=== PATIENT | male | born 1965 | race Caucasian/White ===

== ENCOUNTER 2024-12-22 17:35 | Emergency (ER) | payer BC, SELFPAY ==
[2024-12-22 17:40] VITALS: BP 144/90; PULSE 83; RESP 18; TEMP 37; O2SAT 96; BMI 34.0
--- NOTE | 2024-12-22 17:48 | PC.NURSE ---
pt states he slipped and fell backwards 2h [employer] while feeding his pigs. pt presents with a lac to the base of his R thumb on the hernandez side. pt reports his pain is 3/10. no bleeding at this time. pts last tetnus vac was 6mo ago. no needs voiced. call arita in reach.
--- NOTE | 2024-12-22 17:56 | ED_ITS ---
<Statement entered by Celeste Padgett MD - 12/22/24 22:51> I was consulted by the NICK, and we discussed the complexity of the problems being addressed. I approved the treatment and management plan for this patient's care in the emergency department, thus performing a substantive portion of the medical decision making. Celeste Padgett MD, FLORENTINO, FACEP Discharge Plan Disposition Patient Disposition: Home, Self-Care Condition: Good Prescriptions Prescriptions: New cephalexin 500 mg capsule 500 mg PO BID 7 Days Qty: 14 0RF Activity Restrictions/Add. Instructions Additional Instructions/Restrictions: As we discussed please wash with soap and water pat dry. Keep your stitches covered with a dry nonocclusive dressing. Stitches need to stay in for about 10 days. If you have any increasing redness pain swelling or drainage return to the emergency department. Send in a prescription to your pharmacy. Please take full there are problem. Clinical Impressions Clinical Impression: Laceration Instructions Patient Instructions: DI for Laceration Repair Print Language Print Language: Kosovan Discharge ED Provider: Celeste Padgett General Adult HPI General Chief complaint: Wound/Laceration Stated complaint: AO 12/22/24 1500 laceration right thumb Time Seen by Provider: 12/22/24 17:56 Mode of Arrival: Ambulatory Source of Information: Patient Description of Symptoms (Recalled from ER Triage Doc. by RN): Pt states he tripped while feeding his pigs and cut his right thumb on the bucket. t-dap is up to date History of Present Illness HPI narrative: Patient presents for evaluation of her right hand laceration. Patient states he was feeding his pig tripped and fell but was able to catch himself with his right hand on the feed bucket. However the feet bucket cut his left hand. He suffered approximately 3 cm laceration to the thenar eminence of his right hand. He denies any numbness tingling loss of motor or sensory. Related Data Previous Rx's ?Medication ?Instructions ?Recorded cephalexin 500 mg capsule 500 mg PO BID 7 days #14 caps 12/22/24 Allergies Allergy/AdvReac Type Severity Reaction Status Date / Time No Known Allergies Allergy Verified 12/22/24 17:52 [facility] Disclaimer: The information contained in this section may have been updated after the dong nt was seen, as this information can be updated by other users. Social History Smoking Status: Light tobacco smoker alcohol intake: never current occupational status: employed Travel in the last 8 weeks: None ROS Obtained: Yes Systems reviewed as appropriate & no additional complaints except as documented Physical Exam General General appearance: alert and in no apparent distress Respiratory Respiratory exam: Present normal lung sounds bilaterally Cardiovascular Cardiovascular exam: Present regular rate Neurological Exam Neurological exam: Present alert and oriented X3 Medical Decision Making Medical Records Medical records reviewed: Yes I reviewed the patient's medical records. Screening: Per USPSTF and CDC recommendations, given the prevalence of disease in our region, it is our hospital?s policy to screen for HIV and viral Hepatitis for all patients aged 18 and over and those with ongoing risk factors. Diogo Inquiry Pt receiving controlled substance: No Vital Signs: 12/22/24 17:40 12/22/24 18:51 Temperature 98.6 F 98.0 F Temperature Source Oral Pulse Rate 81 Pulse Rate [Right] 83 Respiratory Rate 18 16 Blood Pressure 134/87 Blood Pressure [Right Arm] 144/90 H Blood Pressure Mean [Right Arm] 108 02 Sat by Pulse Oximetry 96 Oxygen Delivery Method Room Air Orders (Tests/Meds): ED MEDICATIONS Discontinued Medications Generic Name Dose Route Start Last Admin Trade Name Freq PRN Reason Stop Dose Admin Cephalexin HCl 500 mg 12/22/24 18:13 12/22/24 18:22 Cephalexin 500mg Capsule PO 12/22/24 18:14 500 mg ONCE ONE Administration Lidocaine/Epinephrine 20 ml 12/22/24 18:12 12/22/24 18:21 Lidocaine 1% W/Epi 1:100,000 20ml Vial SQ 12/22/24 18:13 20 ml ONCE ONE Administration Medical Decision Narrative: In summary patient is a 59-year-old male who presents to the emergency department for evaluation of hand laceration. Patient is hemodynamically stable upon arrival, afebrile. Physical exam is remarkable for 3 cm laceration over the thenar eminence palm of his right hand. Is to be superficial and does not involve any deeper structures. Patient has full range of motion is neurovascular intact distally.. Differential diagnosis includes superficial versus complex deep laceration of the right hand. Initial workup will be conducted with exam under subcu anesthesia. Initial interventions include Keflex and patient's tetanus is up-to-date. Initial workup performed by me and after adequate anesthesia wound was irrigated with a liter of Hibiclens and saline. All deep structures are intact and only involves the skin and immediate subcutaneous tissue. Given this wound was repaired primarily with 6 point 0 nylon sutures in an interrupted fashion. Given this patient is appropriate for discharge with prescription for Keflex and sent to his pharmacy with instructions to leave the sutures in for approximately 10 days. He is given strict return precautions for redness drainage swelling increasing pain. Wound care instructions were given to myself he may wash with soap and water and keep sutures covered with a clean dry nonocclusive dressing. Procedures Laceration Laceration 1: Site: hand Side (If applicable): right Size (cm): 3 Description: linear Depth: involves subcutaneous layer Local Anesthetic: lidocaine 1% and with epi Amount of anesthesia used (mL): 10 Pre-repair: wound explored, irrigated extensively and deep structures intact Skin layer closed with: nylon Size (cm): 4-0 Number of sutures: 6 Technique: simple, interrupted Critical Care Critical Care Time Critical Care Time: No
--- OUTSIDE RECORDS SUMMARY | 2024-12-22 18:06 | XMS_ITS ---
Author Organization Unknown Medications Medication Instructions Effective Dates (start - stop) Status rosuvastatin calcium 20 MG O ral Tablet 2664-82-02Y87:00:00.000+00:0 0 - Completed rosuvastatin calcium 20 MG O ral Tablet 6402-11-71M40:00:00.000+00:0 0 - Completed rosuvastatin calcium 20 MG O ral Tablet 5109-01-69K37:00:00.000+00:0 0 - Completed rosuvastatin calcium 20 MG O ral Tablet 5698-11-98H47:00:00.000+00:0 0 - Completed rosuvastatin calcium 20 MG O ral Tablet 1414-57-46V17:00:00.000+00:0 0 - Completed rosuvastatin calcium 20 MG O ral Tablet 0812-15-32Y09:00:00.000+00:0 0 - Completed rosuvastatin calcium 20 MG O ral Tablet 2512-89-47G00:00:00.000+00:0 0 - Completed rosuvastatin calcium 20 MG O ral Tablet 9485-51-06G20:00:00.000+00:0 0 - Completed rosuvastatin calcium 20 MG O ral Tablet 8616-18-78W19:00:00.000+00:0 0 - Completed rosuvastatin calcium 20 MG O ral Tablet 8194-16-25H02:00:00.000+00:0 0 - Completed 24 HR bupropion hydrochlorid e 150 MG Extended Release Oral Tablet 0472-96-18K27:00:00.00 0+00:0 0 - Completed lisinopril 20 MG Oral Tablet 11-14-13:00:00.000+00:0 0 - Completed 24 HR bupropion hydrochlorid e 150 MG Extended Release Oral Tablet 1025-99-26D87:00:00.00 0+00:0 0 - Completed ergocalciferol 1.25 MG Oral Capsule 2176-78-49T75:00:00.000+00:0 0 - Completed lisinopril 20 MG Oral Tablet 11-09-12:00:00.000+00:0 0 - Completed 24 HR bupropion hydrochlorid e 150 MG Extended Release Oral Tablet 7230-89-88K80:00:00.00 0+00:0 0 - Completed lisinopril 20 MG Oral Tablet 11-13-14:00:00.000+00:0 0 - Completed rosuvastatin calcium 20 MG O ral Tablet 8059-44-19O48:00:00.000+00:0 0 - Completed lisinopril 20 MG Oral Tablet 10-22-13:00:00.000+00:0 0 - Completed lisinopril 20 MG Oral Tablet 10-21-08:00:00.000+00:0 0 - Completed 24 HR bupropion hydrochlorid e 150 MG Extended Release Oral Tablet 8260-28-37C07:00:00.00 0+00:0 0 - Completed rosuvastatin calcium 20 MG O ral Tablet 6386-04-66A04:00:00.000+00:0 0 - Completed 24 HR bupropion hydrochlorid e 150 MG Extended Release Oral Tablet 0973-91-05R46:00:00.00 0+00:0 0 - Completed 24 HR bupropion hydrochlorid e 150 MG Extended Release Oral Tablet 7507-23-08G31:00:00.00 0+00:0 0 - Completed lisinopril 20 MG Oral Tablet 10-20-02:00:00.000+00:0 0 - Completed 24 HR bupropion hydrochlorid e 150 MG Extended Release Oral Tablet 5496-83-37T45:00:00.00 0+00:0 0 - Completed 24 HR bupropion hydrochlorid e 150 MG Extended Release Oral Tablet [id number]:00:00.00 0+00:0 0 - Completed ergocalciferol 1.25 MG Oral Capsule 6875-75-37T57:00:00.000+00:0 0 - Completed lisinopril 20 MG Oral Tablet 11-11-13:00:00.000+00:0 0 - Completed lisinopril 20 MG Oral Tablet 10-18-10:00:00.000+00:0 0 - Completed lisinopril 20 MG Oral Tablet 202 11-10-16:00:00.000+00:0 0 - Completed 24 HR bupropion hydrochlorid e 150 MG Extended Release Oral Tablet 1166-27-13X59:00:00.00 0+00:0 0 - Completed 24 HR bupropion hydrochlorid e 150 MG Extended Release Oral Tablet 0557-27-22H28:00:00.00 0+00:0 0 - Completed 24 HR bupropion hydrochlorid e 150 MG Extended Release Oral Tablet 8703-68-12H17:00:00.00 0+00:0 0 - Completed 24 HR bupropion hydrochlorid e 150 MG Extended Release Oral Tablet 8903-53-66K42:00:00.00 0+00:0 0 - Completed lisinopril 20 MG Oral Tablet 202 11-09-11:00:00.000+00:0 0 - Completed lisinopril 20 MG Oral Tablet 202 11-13-15:00:00.000+00:0 0 - Completed lisinopril 20 MG Oral Tablet 10-19-08:00:00.000+00:0 0 - Completed ergocalciferol 1.25 MG Oral Capsule 6425-97-34Z33:00:00.000+00:0 0 - Completed ergocalciferol 1.25 MG Oral Capsule 9263-60-39R96:00:00.000+00:0 0 - Completed ergocalciferol 1.25 MG Oral Capsule 7506-84-08V66:00:00.000+00:0 0 - Completed ergocalciferol 1.25 MG Oral Capsule 3169-31-04H37:00:00.000+00:0 0 - Completed ergocalciferol 1.25 MG Oral Capsule 5022-12-11E10:00:00.000+00:0 0 - Completed ergocalciferol 1.25 MG Oral Capsule 7952-87-91J02:00:00.000+00:0 0 - Completed ergocalciferol 1.25 MG Oral Capsule 9310-12-11V69:00:00.000+00:0 0 - Completed ergocalciferol 1.25 MG Oral Capsule 1813-34-33W86:00:00.000+00:0 0 - Completed ergocalciferol 1.25 MG Oral Capsule 5605-30-72G74:00:00.000+00:0 0 - Completed ergocalciferol 1.25 MG Oral Capsule 5145-09-34Q87:00:00.000+00:0 0 - Completed Patient Care team information Name Category Status Period Participants - - Proposed period not known -
--- OUTSIDE RECORDS SUMMARY | 2024-12-22 18:06 | XMS_ITS | Continuity of Care Document ---
Author Organization [facility] & [place], [facility] Address [address] [place] [address] [address] [place] [address] Care Team Providers Care Bufferer Name Role Phone PRIMARY PLUS - SATISH Primary Care Provider [phone] Assessment No assessment recorded. Plan of Treatment Reminders Order Date Submit Date Provider Last Modified By Organization Details Last Modified Time Details Appointments None record ed. Lab None record ed. Referral None record ed. Procedures None record ed. Surgeries None record ed. Imaging None record ed. Medication Orders None record ed. Patient TargetsNo targets recorded. Patient Instructions Encounter Date Encounter Id Patient Instructions Last Modified By Organization Details Last Modified Time 11/14/2024 [id number] Continue CPAP each and every night full sleep cycle , he voiced understanding. He is on auto CPAP in range of 6-20 cm and he is compliant, he benefits from CPAP with resolution of fatigue, witnessed apneas and snores. He states he will discuss with his primary care provider referral for another sleep physician /provider. [email or web address] Not available 11/14/2024 09:01:55 Reason for Referral None Reported. Problems Name Problem SNOMED Code Status Onset Date Resolution Date Notes Provider Name and Address Organization Details Recorded Time Obstructive sleep apnea syndrome 68542065 Active 023 Syed Melo MD [address] [facility] [address], [place], [address] [place] [address] & [place] 3 20:19:14 Problem Notes None recorded. Medical Equipment None Reported. Allergies No known drug allergies Medications Name Sig Start Date Stop Date Status Note LastModified by Organization Details LastModified Time doxycycline hyclate 100 mg capsule 11/14 completed Not Available Not Available Not Available clindamycin HCl 300 mg capsule TAKE 1 CAPSULE BY MOUTH THREE TIMES A DAY FOR 7 DAYS 11/14 completed Not Available Not Available Not Available sildenafil 50 mg tablet as directed active Not Available Not Available No t Available ibuprofen 800 mg tablet as needed 10/16 completed Not Available Not Available Not Available lisinopril 20 mg tablet Take 1 tablet every day by oral route for 30 days. active Not Available Not Available No t Available acetaminoph en 300 mg-codeine 30 mg tablet 11/14 completed Not Available Not Available Not Available meloxicam 7.5 mg tablet Take 1 tablet every day by oral route for 30 days. 10/16 completed Not Available Not Available Not Available mupirocin 2 % topical ointment APPLY A SMALL AMOUNT TO AFFECTED AREA 3 TIMES A DAY active Not Available Not Available No t Available testosteron e cypionate 200 mg/mL intramuscul ar oil as directed 11/06 completed Not Available Not Available Not Available methylpredn isolone 4 mg tablets in a dose pack 11/14 completed Not Available Not Available Not Available Vitamin D2 1,250 mcg (50,000 unit) capsule Take 1 capsule every week by oral route for 28 days. active Not Available Not Available No t Available celecoxib 100 mg capsule 10/19 completed Not Available Not Available Not Available rosuvastati n 20 mg tablet Take 1 tablet every day by oral route for 30 days. active Not Available Not Available No t Available bupropion HCl XL 150 mg 24 hr tablet, extended release Take 1 tablet every day by oral route for 30 days. active Not Available Not Available No t Available chlorhexidi ne gluconate 0.12 % mouthwash as directed 10/16 completed Not Available Not Available Not Available sodium,pota ssium,mag sulfates 17.5 gram-3.13 gram-1.6 gram oral soln active Not Available Not Available Not Available Vitals Date Recorded Body height Body mass index (BMI) Body weight Oxygen saturation Oxygen saturation in Arterial blood by Pulse oximetry Respiratory rate Systolic blood pressure Diastolic blood pressure Provider Name and Address Organization Details Last Updated DateTime 182.88 cm 35.4 kg/m2 419622. 61 g 97 % 97 % 14 /min 132 mm[Hg] 82 mm[Hg] Crystal [place]wine [place] - [facility] - [place] & [place] 08:54:19 Date Recorded Heart rate Provider Name an d Address Organization Details Last Updated DateTime 11/14/2024 67 /min Syed munson MD [address] [place] [address],[address], [place], [address], [facility] & [place] 11/14/2024 08:59:46 Social History Question Answer Notes LastModified by Organizat ion Details LastModified Time Tobacco Smoking Status Former Smoker 1 PPD hx 35 years Jeanne gonzalez, [facility] & [place] 10/04/2022 15:17:22 Do You Have An Advance Directive? No Information not available 10/04/2022 What Is Your Level Of Alcohol Consumption? Occasional Information not available 10/04/2022 Are You Blind Or Do You Have Difficulty Seeing? No Information not available 10/04/2022 When Did You Quit Smoking? 1-5yearssinkeena sarah QUIT 2019 Information not available 10/19/2023 What Was The Date Of Your Most Recent Tobacco Screening? 11/11/2024 Information not available 11/14/2024 What Is Your Current Pack Years? [email or web address] Information not available 10/19/2023 Are You Passively Exposed To Smoke? No Information not available 10/04/2022 Do You Or Have You Ever Used Smokeless Tobacco? Former Smokeless Tobacco User Information not available 10/04/2022 How Much Tobacco Do You Smoke? No Information not available 10/04/2022 Do You Feel Stressed (tense, Restless, Nervous, Or Anxious, Or Unable To Sleep At Night)? [id number] Information not available 10/04/2022 Do You Use Any Illicit Or Recreational Drugs? Yes Information not available 11/14/2024 How Many Years Have You Smoked Tobacco? 35 Information not available 11/14/2024 Sex: Male Functional Status Question Answer Note LastModified by Organizat ion Details LastModified Time What is your exercise level? Occasional Information not available 10/04/2022 Mental Status None recorded. Family History Relationship Description Onset Age of this Age Resolved Age Notes LastModified by Organization Details LastModified Time Father No current problems or disability [email or web address] Not available 11/14 08:48:08 Mother No current problems or disability [email or web address] Not available 11/14 08:48:08 Mother Multiple sclerosis 53 70 Not available 05/2024 09:28:49 Maternal Grandfather Myocardial infarction 56 56 Not available 05/2024 09:28:49 Medical History Condition Response None N Eczema Y High Cholesterol Y Hypertension Y Past Encounters Encounter ID Performer Location Encounter Start Date Encounter Closed Date Diagnosis/Indication Diagnosis SNOMED-CT Code Diagnosis ICD10 Code Diagnosis Note [id number] MD [facility] [address] [facility] [address] [place] [id number] 11/14/2024 08:44:50 11/14/2024 08:59:24 Obstructive sleep apnea syndrome 68273182 G47.33 Health Concerns Section Related Observation LastModified by Organization Detai ls LastModified Time None Recorded Concern Status LastModified by Organization Details LastModified Time None Recorded Payers Encounter Date Sequence Insurance Name Policy Number Policy Spence Covered Member ID Spence Member ID Guarantor Name 11/14/2024 1 [place] [id number] Ron Zambrano [id number] Ron Zambrano Notes Date Note Type Note Provider Name and Address Organization Details Recorded Time 11/14/2024 text/html 59-year-old male here for follow-up. He has history of obstructive sleep apnea.He denies RLS, fatigue, hypersomnia, shortness of breath, sleep attacks, sleep paralysis, dyspnea, hemoptysis, pleurisy, chest pain, chest pressure, cough or productive sputum.Home sleep study revealed an apnea plus hypopnea index of 55, patient spent 43 minutes less than 90% saturation, lowest saturation recorded was 81%.He is on auto CPAP range of 6-20 cm. Sagle of 0. AHI is 2.8 with auto CPAP range 6-20cm. He is markedly improved with CPAP with resolution of fatigue, witnessed apneas and snores. He declines a low-dose CT scan of chest and CXR. I explained to patient again a low-dose CT scan chest/CXR may detect an early lung cancer and or other lung disorders and result in improved survival and may prevent him from future ill health, sickness and , he voiced understanding and declines a low-dose CT scan of chest and/or a CXR. Patient was instructed to wear CPAP each and every night full sleep cycle, he voiced understanding and stated he would. He voices no sleep-related or CPAP related issues. He wakes up rested and refreshed. No fatigue, EDS or hypersomnia.He denies fatigue, hypersomnia, sleep attacks, sleep hallucinations, sleep paralysis, cataplexy or RLS.He voices no cardiopulmonary complaints, no GI complaints, no neurologic complaints today.He denies fever, chills, night sweats, hemoptysis, pleurisy, dyspnea, chest pain, chest pressure, orthopnea, PND, syncope, palpitations, cough, productive sputum or dizziness.The patient does not get sleepy, drowsy or fall asleep while driving, patient warned no driving motorized vehicles or operating machinery while fatigued, sleepy or drowsy, he voiced understanding.Jurgen herrera Wells criteria of 0. Sagle of 0.This note was completed using a dictation system. We do our best to minimize mistakes by this dictation system, but some dictation system mistakes cannot be identified. If something does not make sense and/ or appears in error please do not hesitate to contact our office. We can correct the record and/ or clarify for you.The patient was warned no driving motorized vehicles or operating heavy machinery while fatigued, sleepy or drowsy, the patient voiced understanding and he stated he would not.Patient was instructed to read the side effect package profile very carefully on all medications prescribed, and to stop medications immediately and go to ER if the patient has any problems, he voiced understanding. Patient was instructed to go over side effects /adverse effects / drug interactions with all of the prescribed and [id number] medications with a pharmacist, he again voiced understanding. The patient was instructed to go to ER if the patient does not continue to improve or worsens, he again voiced understanding.I told the patient I will be retiring January 2025, the patient voiced understanding.The patient was instructed to follow-up with their primary care provider and/or a printing table hand/sleep physician for all their future pulmonary needs/ issues/meds and all of their sleep needs/issues/meds, the patient voiced understanding. The patient was also instructed to follow-up with their primary care provider and/ or a printing table hand for all recommended future CT scans of the chest, the patient voiced understanding. I told the patient their lack of follow-up with recommended future CT scans of chest could result in future ill health, sickness, , the patient again voiced understanding.He voiced understanding of all the above. Syed Melo MD [address] [facility],[address], [place], [address], [facility] - [place] - [place] & [place] 11/14/2024 09:03:48
--- OUTSIDE RECORDS SUMMARY | 2024-12-22 18:06 | XMS_ITS | Data Portability ---
Author Organization [place] [facility] Address [address] [place] [address] Care Team Providers Care Revenue Inspector Name Role Phone PRIMARY PLUS - SATISH Primary Care Provider Assessment No assessment recorded. Plan of Treatment [...] Modified By Organization Details Last Modified Time 10/04/2022 [id number] continue CPAP each and every night full sleep cycle. He is on auto CPAP in range of 6-20 cm, he is compliant and benefits from CPAP with resolution of fatigue, witnessed apneas and snores, apnea plus hypopnea index of 7.5. Continued tobacco cessation. Again he declines a low-dose CT scan of chest, see previous note. Weight loss. This note was completed using a dictation system. We do our best to minimize mistakes by this dictation system, but some dictation system mistakes cannot be identified. If something does not make sense and/ or appears in error please do not hesitate to contact our office. We can correct the record and/or clarify for you. The patient was warned no driving motorized vehicles or operating heavy machinery while fatigued, sleepy or drowsy, the patient voiced understanding and the patient stated they would not. Patient was instructed to read the side effect package profile very carefully on all medications prescribed, and to stop medications immediately and go to ER if the patient has any problems, the patient voiced understanding. Patient was instructed to go over side effects /adverse effects / drug interactions with all of the prescribed and over the counter medications with the pharmacist, the patient again voiced understanding. The patient was instructed to go to ER if the patient does not improve or worsens, the patient again voiced understanding. Return to clinic in 1 year. [email or web address] Not available 10/04/2022 14:52:17 10/19/2023 [id number] Continue CPAP each and every night full sleep cycle , he voiced understanding. He is on auto CPAP in range of 6-20 cm, he benefits from CPAP with resolution of fatigue, witnessed apneas and snores. Continued tobacco cessation. He states he has not been able wear CPAP consistently as of recently as he has been away from home. States he has been wearing CPAP each and every sleep cycle for the last week. Return to clinic in 3 - 4 weeks with compliance report. [email or web address] Not available 10/19/2023 09:44:58 11/09/2023 [id number] Continue CPAP each and every night full sleep cycle , he voiced understanding. He is on auto CPAP in range of 6-20 cm and he is compliant, he benefits from CPAP with resolution of fatigue, witnessed apneas and snores. Continued tobacco cessation. Return to clinic in 1 year Not available 11/09/2023 09:03:45 11/14/2024 [id number] Continue CPAP each and every night full sleep cycle , he voiced understanding. He is on auto CPAP in range of 6-20 cm and he is compliant, he benefits from CPAP with resolution of fatigue, witnessed apneas and snores. He states he will discuss with his primary care provider referral for another sleep physician /provider. [email or web address] Not available 11/14/2024 09:01:55 Reason for Referral None Reported. Problems Name Problem SNOMED Code Status Onset Date Resolution Date Notes Provider Name and Address Organization Details Recorded Time Obstructive sleep apnea syndrome 25826288 Active 023 Syed Melo MD [address] [place] [address],[address], [address] [place] [address] & [place] 3 20:19:14 Problem Notes None recorded. Medical [...] Not Available Not Available Vitals Date Recorded Oxygen saturation Oxygen saturation in Arterial blood by Pulse oximetry Respiratory rate Heart rate Provider Name and Address Organization Details Last Updated DateTime 10/04/2022 97 % 97 % 12 /min 71 /min Syed Melo MD [address] [place] [address],[facility] [address], [address], [place] - [facility] - [facility] & F[place] 3 14:55:35 Date Recorded Body height Body mass index (BMI) Body weight Systolic blood pressure Diastolic blood pressure Provider Name and Address Organization Details Last Updated DateTime 10/04/2022 182.88 cm 36.3 kg/m2 402212.7 6 g 122 mm[Hg] 80 mm[Hg] Crystal Anushka [place] - [facility] - [place] & [place] 3 15:14:22 Date Recorded Body height Body mass index (BMI) Body weight Oxygen saturation Oxygen saturation in Arterial blood by Pulse oximetry Systolic blood pressure Diastolic blood pressure Provider Name and Address Organization Details Last Updated DateTime 4 182.88 cm 34.7 kg/m2 000739. 21 g 99 % 99 % 112 mm[Hg] 78 mm[Hg] Crystal Anushka [place] - [facility] - [place] & [place] 4 09:28:18 Date Recorded Heart rate Respiratory rate Provider N melanie and Address Organization Details Last Updated DateTime 10/19/2023 70 /min 14 /min Syed Melo MD [address] [place] [address],[address], [place], [address], [place] - [facility] - [place] & [place] 10/19/2023 09:36:42 Date Recorded Body height Body mass index (BMI) Body weight Oxygen saturation Oxygen saturation in Arterial blood by Pulse oximetry Heart rate Respiratory rate Systolic blood pressure Diastolic blood pressure Provider Name and Address Organization Details Last Updated DateTime 4 182.88 cm 35.3 kg/m2 533993. 02 g 99 % 99 % 66 /min 12 /min 132 mm[Hg] 80 mm[Hg] Crystal Anushka [place] - [facility] - [place] & [place] 4 08:58:18 Date Recorded Body height Body mass index (BMI) Body weight Oxygen saturation Oxygen saturation in Arterial blood by Pulse oximetry Respiratory rate Systolic blood pressure Diastolic blood pressure Provider Name and Address Organization Details Last Updated DateTime 5 182.88 cm 35.4 kg/m2 682837. 61 g 97 % 97 % 14 /min 132 mm[Hg] 82 mm[Hg] Crystal Anushka [place] - [facility] - [place] & [place] 08:54:19 Date Recorded Heart rate Provider Name an d Address Organization Details Last Updated DateTime 11/14/2024 67 /min Syed munson MD [address] [place] [address],[address], [place], [address], [facility] & [place] 11/14/2024 08:59:46 Social History Question Answer Notes LastModified by Organizat ion Details LastModified Time Tobacco Smoking Status Former Smoker 1 PPD hx 35 years Crystal Earlywine [facility], JUDD [facility] & [place] 10/04/2022 15:17:22 Do You Have An Advance [...] 11/14/2024 What Is Your Current Pack Years? [email or web address] [email or web address] Information not available 10/19/2023 Are You Passively Exposed To Smoke? No Information not available 10/04/2022 Do You Or Have You Ever Used Smokeless Tobacco? Former Smokeless Tobacco User Information not available 10/04/2022 How Much Tobacco Do You Smoke? No Information not available 10/04/2022 Do You Feel Stressed (tense, Restless, Nervous, Or Anxious, Or Unable To Sleep At Night)? [id number] Information not available 10/04/2022 Do You Use [...] Time Father No current problems or disability [email or web address] Not available 11/14 08:48:08 Mother No current problems or disability [email or web address] Not available 11/14 08:48:08 Mother Multiple sclerosis 53 70 Not available 05/2024 09:28:49 Maternal Grandfather Myocardial infarction 56 56 Not available 05/2024 09:28:49 Medical History Condition Response None N Eczema Y Hypertension Y High Cholesterol Y Past Encounters Encounter ID Performer Location Encounter Start Date Encounter Closed Date Diagnosis/Indication Diagnosis SNOMED-CT Code Diagnosis ICD10 Code Diagnosis Note [id number] [facility] [address] [facility] [address] [place] [address] [place] [id number] 10/04/2022 14:18:19 10/04/2022 14:50:36 Obstructive sleep apnea syndrome 99329816 G47.33 [id number] MD [facility] [address] [facility] [address] [place] [address] [place], [place] [id number] 10/19/2023 09:20:40 10/19/2023 09:42:05 Obstructive sleep apnea syndrome 40348266 G47.33 [id number] MD T[facility] [address] [facility] [address] [place] [address] [place] [phone] 11/09/2023 08:50:56 11/09/2023 09:06:07 Obstructive sleep apnea syndrome 64525308 G47.33 [id number] MD T[facility] [address] [facility] [address] [place] [address] [place] [phone] 11/14/2024 08:44:50 11/14/2024 08:59:24 Obstructive sleep apnea syndrome 77885446 G47.33 Health Concerns Section Related Observation LastModified by Organization Detai ls LastModified Time None Recorded Concern Status LastModified by Organization Details LastModified Time None Recorded Advance Directives Directive N: Payers Encounter Date Sequence Insurance Name Policy Number Policy Spence Covered Member ID Spence Member ID Guarantor Name 10/04/2022 1 [place] [employer] [place] [id number] Ron Zambrano [id number] Ron Zambrano 10/19/2023 1 [place] [id number] Ron Zambrano [id number] Ron Zambrano 11/09/2023 1 [place] [id number] Ron Zambrano [id number] Ron Zambrano 11/14/2024 1 [place] [id number] Ron Zambrano [id number] Ron Zambrano Notes Date Note Type Note Provider Name and Address Organization Details Recorded Time 10/04/2022 text/html He is a 57-year- old male here for follow-up. He has history of obstructive sleep apnea. He denies RLS, fatigue, hypersomnia, sleep attacks, sleep paralysis, dyspnea, hemoptysis, pleurisy, chest pain, chest pressure, cough or productive sputum. Home sleep study revealed an apnea plus hypopnea index of 55, patient spent 43 minutes less than 90% saturation, lowest saturation recorded was 81%. He is on auto CPAP range of 6-20 cm. [place] of 1 today. He is markedly improved with CPAP with resolution of fatigue, witnessed apneas and snores. He again declines a low-dose CT scan of chest. I explained to patient again a low-dose CT scan chest may detect an early lung cancer and or other lung disorders and result in improved survival, he voiced understanding and still declines a low-dose CT scan of chest.He was unable to wear CPAP for the month of June as he did not have electricity where he was at otherwise he is compliant with CPAP. Syed Melo MD [address], [place], [address], [facility] & [place] 10/04/2022 15:49:13 10/19/2023 text/html 58-year-old male here for follow-up. He has history of obstructive sleep apnea.The patient denies RLS, fatigue, hypersomnia, sleep attacks, sleep paralysis, dyspnea, hemoptysis, pleurisy, chest pain, chest pressure, dyspnea, cough or productive sputum. Home sleep study revealed an apnea plus hypopnea index of 55, patient spent 43 minutes less than 90% saturation, lowest saturation recorded was 81%. He is on auto CPAP range of 6-20 cm. [place] of 2 today. He is markedly improved with CPAP with resolution of fatigue, witnessed apneas and snores. The patient again declines a low-dose CT scan of chest. I again explained to patient again a low-dose CT scan chest may detect an early lung cancer and or other lung disorders and result in improved survival, he voiced understanding and still declines a low-dose CT scan of chest.He states he did have an air leak at his resevoir site and this has been corrected he stated. Patient was instructed to wear CPAP each and every night full sleep cycle, he voiced understanding and stated he would.The patient presently voices no sleep-related or CPAP/BiPAP related issues. He is due for new supplies. States he has had CPAP machine approximately a year.The patient voices no cardiopulmonary complaints, no GI complaints, no neurologic complaints today.Patient denies fever, chills, night sweats, hemoptysis, pleurisy, chest pain, chest pressure, orthopnea, PND, syncope, palpitations, cough, productive sputum or dizziness.The patient does not get sleepy, drowsy or fall asleep while driving, patient warned no driving motorized vehicles or operating machinery while fatigued, sleepy or drowsy, he voiced understanding.Jurgen herrera Wells criteria of 0. [place] of 2.He denies fatigue, hypersomnia, sleep attacks, sleep hallucinations, sleep paralysis, cataplexy or RLS.This note was completed using a dictation system. [...] ER if the patient has any problems, the patient voiced understanding. Patient was instructed to go over side effects /adverse effects / drug interactions with all of the prescribed and [id number]-qmkrgam medications with a pharmacist, he again voiced understanding. The patient was instructed to go to ER if the patient does not improve or worsens, the patient again voiced understanding. Syed Melo MD [address] [place] [address],[address], [place], [address], [place] - [facility] - [place] & [place] 10/19/2023 13:25:34 11/09/2023 text/html 58-year-old male here for follow-up. He has history of obstructive sleep apnea.The patient denies RLS, fatigue, hypersomnia, sleep attacks, sleep paralysis, dyspnea, hemoptysis, pleurisy, chest pain, chest pressure, dyspnea, cough or productive sputum. Home sleep study revealed an apnea plus hypopnea index of 55, patient spent 43 minutes less than 90% saturation, lowest saturation recorded was 81%. He is on auto CPAP range of 6-20 cm. [place] of 2 today. AHI is 6.9 with auto CPAP range 6-20cm. He is markedly improved with CPAP with resolution of fatigue, witnessed apneas and snores. The patient declines a low-dose CT scan of chest and CXR. I again explained to patient again a low-dose CT scan chest/CXR may detect an early lung cancer and or other lung disorders and result in improved survival and may prevent him from future ill health, sickness and , he voiced understanding and still declines a low-dose CT scan of chest/CXR.He states he did have an air leak at his resevoir site and this has been corrected he stated. Patient was instructed to wear CPAP each and every night full sleep cycle, he voiced understanding and stated he would.The patient presently voices no sleep-related or CPAP related issues. He obtained his new supplies. States he has had CPAP machine approximately a year. he wakes up rested and refreshed. No fatigue or hypersomnia.He denies fatigue, hypersomnia, sleep attacks, sleep hallucinations, sleep paralysis, cataplexy or RLS.The patient voices no cardiopulmonary complaints, no GI complaints, no neurologic complaints today.He denies fever, chills, night sweats, hemoptysis, pleurisy, dyspnea, chest pain, chest pressure, orthopnea, PND, syncope, palpitations, cough, productive sputum or dizziness.The patient does not get sleepy, drowsy or fall asleep while driving, patient warned no driving motorized vehicles or operating machinery while fatigued, sleepy or drowsy, he voiced understanding.Jurgen Awan criteria of 0. [place] of 2.This note was completed using a dictation system. [...] interactions with all of the prescribed and irxu-tvk-qglyhmr medications with a pharmacist, he again voiced understanding. The patient was instructed to go to ER if the patient does not continue to improve or worsens, he again voiced understanding. Syed Melo MD [address] [facility],[address], [place], [address], [facility] - [facility] - [place] & [place] 11/09/2023 09:04:37 11/14/2024 text/html 59-year-old male here for follow-up. [...] on auto CPAP range of 6-20 cm. [place] of 0. AHI is 2.8 with auto [...] voiced understanding.Jurgen herrera Wells criteria of 0. [place] of 0.This note was completed using a [...] interactions with all of the prescribed and [id number]-twmofdd medications with a pharmacist, he again voiced understanding. The patient was instructed to go to ER if the patient does not continue to improve or worsens, he again voiced understanding.I told the patient I will be retiring January 2025, the patient voiced understanding.The patient was instructed to follow-up with their primary care provider and/or a [employer] advisor/sleep physician for all their future pulmonary needs/ issues/meds and all of their sleep needs/issues/meds, the patient voiced understanding. The patient was also instructed to follow-up with their primary care provider and/ or a [employer] advisor for all recommended future CT scans of the chest, the patient voiced understanding. I told the patient their lack of follow-up with recommended future CT scans of chest could result in future ill health, sickness, , the patient again voiced understanding.He voiced understanding of all the above. Syed Melo MD [address] [place] [address],[address], [place], [address], [place] - [facility] - [place] & [place] 11/14/2024 09:03:48
[2024-12-22] MEDS: LIDOCAINE 1% W/EPI 1:100,000 20ML VIAL 20 ML SQ (18:21)
[2024-12-22] MEDS: cephALEXin 500MG CAPSULE 500 MG PO (18:22)
[2024-12-22 18:51] VITALS: BP 134/87; PULSE 81; RESP 16; TEMP 36.7; O2SAT 96
== END 2024-12-22 18:59 | disposition home or self-care (01) ==
PROVIDERS: Emergency Provider Student in an Organized Health Care Education/Training Program
DX: S61.411A Laceration without foreign body of right hand, initial encounter (principal); W26.8XXA Contact with other sharp object(s), not elsewhere classified, initial encounter
CPT/HCPCS: 12002; 99283